=== PATIENT | female | born 1955 | race Hispanic/Latino ===

== ENCOUNTER 2019-06-01 12:18 | Outpatient (CLI) | payer OTHER ==
--- NOTE | 2019-06-01 12:52 | XRay Report ---
CHEST PA AND LATERAL VIEWS INDICATION: MILD INTERMITTENT ASTHMA, UNCOMPLICATED J45.20. COMPARISON: None FINDINGS: Support devices: None Heart: Normal Lungs/Pleura: No acute pulmonary or pleural findings. IMPRESSION: 1. No significant abnormality. Signer Name: Alexey Sena MD Signed: 06/01/2019 12:47 PM Workstation Name: [id number]
== END 2019-06-01 12:19 | disposition home or self-care (01) ==
LOC: SPVIMAG 12:18
PROVIDERS: ATTEND Internal Medicine
DX: J45.20 Mild intermittent asthma, uncomplicated (principal)
CPT/HCPCS: 71046